=== PATIENT | female | born 1980 | race Caucasian/White ===

== ENCOUNTER 2020-03-06 21:03 | Emergency (ER) | payer MEDICAID ==
[~2020-03-06] VITALS: Ht 160 cm; Wt 109.9 kg
[2020-03-06 21:10] VITALS: Ht 160 cm; Wt 109.9 kg
[2020-03-06 21:45] VITALS: BP 153/71
== END 2020-03-06 21:45 | disposition home or self-care (01) ==
LOC: ED 21:03
DX: H60.91 Unspecified otitis externa, right ear (principal)
CPT/HCPCS: J1885